=== PATIENT | male | born 1975 | race Caucasian/White ===

== ENCOUNTER 2018-04-28 03:45 | Emergency (ER) | payer OTHER ==
[~2018-04-28] VITALS: Ht 182.9 cm; Wt 95.3 kg
[2018-04-28 03:51] VITALS: BP 137/106
--- NOTE | 2018-04-28 03:53 | NUR ---
TO ED 05 VIA WHEELCHAIR
--- NOTE | 2018-04-28 03:55 | NUR ---
PATIENT PRESENTS TO ED WITH RIGHT ANKLE PAIN AND SWELLING. PT STATES HE ROLLED HIS ANKLE ONE WEEK AGO BUT IT DID NOT HURT UNTIL THIS MORNING. DENIES N/V/D; SKIN IS PINK/WARM/DRY; AAOX4 WITH EVEN AND STEADY GAIT; LUNGS CLEAR BL; HR EVEN AND REGULAR; PT DENIES ANY FEVER, CP, SOB, OR COUGH AT THIS TIME; PATIENT STATES PAIN OF 5/10 AT THIS TIME; VSS; PATIENT POSITIONED FOR COMFORT; HOB ELEVATED; BEDRAILS UP X2; BED DOWN. ER MD MADE AWARE OF PT STATUS.
--- NOTE | 2018-04-28 03:58 | NUR ---
Dr. Butler evaluating patient at bedside.
--- NOTE | 2018-04-28 04:04 | NUR ---
X-Ray at bedside.
[2018-04-28] MEDS ORDERED: KETOROLAC 60 MG/2 ML VIAL IM ONE (04:05)
--- NOTE | 2018-04-28 04:15 | NUR ---
AYO WRAPPED PT'S RIGHT FOOT/ANKLE.
[2018-04-28 04:22] VITALS: BP 135/98
== END 2018-04-28 04:22 | disposition home or self-care (01) ==
LOC: MED 03:45
DX: S93.401A Sprain of unspecified ligament of right ankle, initial encounter (principal); F17.200 Nicotine dependence, unspecified, uncomplicated; Z88.5 Allergy status to narcotic agent; Z98.890 Other specified postprocedural states; X58.XXXA Exposure to other specified factors, initial encounter; Y93.89 Activity, other specified; Y92.89 Other specified places as the place of occurrence of the external cause; Y99.8 Other external cause status
CPT/HCPCS: 73610; 96372; 99283; J1885; Q0092

== ENCOUNTER 2018-05-07 01:35 | Emergency (ER) | payer OTHER ==
[~2018-05-07] VITALS: Ht 182.9 cm; Wt 95.3 kg
[2018-05-07 01:40] VITALS: BP 172/120
--- NOTE | 2018-05-07 01:45 | NUR ---
PT TAKEN TO BED 9
--- NOTE | 2018-05-07 01:52 | NUR ---
Dr. Manriquez evaluating patient at bedside.
[2018-05-07] MEDS ORDERED: KETOROLAC 60 MG/2 ML VIAL IM ONE (01:55)
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
--- NOTE | 2018-05-07 02:04 | NUR ---
Kellie hutson in [facility] - 05/07/18 at 0311 by ISELA PT TAKEN TO CT
--- NOTE | 2018-05-07 02:04 | NUR ---
PT TAKEN TO XRAY
[2018-05-07] MEDS ORDERED: fentaNYL 0.05 MG/ML VIAL IM ONE (03:15)
[2018-05-07 03:36] VITALS: BP 149/106
--- NOTE | 2018-05-07 03:36 | NUR ---
Note mariamone in EDM - 05/07/18 at 0406 by [facility] Patient discharged with v/s stable. Written and verbal after care instructions given and explained. Patient alert, oriented and verbalized understanding of instructions. Ambulatory with steady gait. All questions addressed prior to discharge. ID band removed. Patient advised to follow up with PMD. Rx of Narcan and [place] given. Patient educated on indication of medication including possible reaction and side effects. Opportunity to ask questions provided and answered.
== END 2018-05-07 03:36 | disposition home or self-care (01) ==
LOC: MED 01:35
DX: S22.22XA Fracture of body of sternum, initial encounter for closed fracture (principal); Z88.5 Allergy status to narcotic agent; V89.2XXA Person injured in unspecified motor-vehicle accident, traffic, initial encounter; Y93.89 Activity, other specified; Y92.89 Other specified places as the place of occurrence of the external cause; Y99.8 Other external cause status
CPT/HCPCS: 71120; 96372; 99283; J1885; J3010

== ENCOUNTER 2018-09-05 04:12 | Emergency (ER) | payer OTHER ==
[~2018-09-05] VITALS: Ht 182.9 cm; Wt 94.8 kg
[2018-09-05 04:15] VITALS: BP 150/90
--- NOTE | 2018-09-05 04:15 | NUR ---
43 Y/O MALE PRESENTS TO ED, C/O SHARP ABDOMINAL PAIN RADIATING TO GROIN REGION, 11/18. 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 PT HAS HX OF PASSING 2 KIDNEY STONES 3 YEARS AGO. PT HAS ACTIVE BOWEL SOUNDS, LAST BOWEL MOVEMENT WAS THIS MORNING. ABDOMEN IS FIRM AT PALPATION. NO PAIN URINATING. PT HAS HX OF HTN. PT VSS. DR QUIROZ AWARE. WILL CONTINUE TO MONITOR.
--- NOTE | 2018-09-05 04:15 | NUR ---
TO BED # 09 AMBULATORY
--- NOTE | 2018-09-05 04:29 | NUR ---
PT TAKEN TO RAD
[2018-09-05] MEDS ORDERED: KETOROLAC 30 MG/ML VIAL IVP ONE (04:30)
[2018-09-05] MEDS ORDERED: NACL 0.9% 1,000 ML IV ONE (04:30)
--- NOTE | 2018-09-05 05:15 | NUR ---
PT IS AWAKE, LAYING ON BED. C/O ABDOMINAL PAIN 11/18. DR QUIROZ AWARE. WILL CONTINUE TO MONITOR.
[2018-09-05 05:31] LABS: BASOPHILS # (AUTO) 0.1 K/uL (0.00-0.22); BASOPHILS % (AUTO) 0.9 % (0.0-2.0); EOSINOPHILS # (AUTO) 0.3 K/uL (0-0.4); EOSINOPHILS % (AUTO) 2.7 % (0.0-4.0); HEMATOCRIT 42.6 % (36-52); HEMOGLOBIN 14.1 g/dL (12.0-18.0); LYMPHOCYTES # (AUTO) 1.1 K/uL (2.0-11.5); LYMPHOCYTES % (AUTO) 11.6 % (20.5-51.1); MEAN CORPUSCULAR HEMOGLOBIN 28 pg (27-31); MEAN CORPUSCULAR HGB CONC 33 g/dL (33-37); MONOCYTES # (AUTO) 1.1 K/uL (0.8-1.0); MONOCYTES % (AUTO) 11.5 % (1.7-9.3); NEUTROPHILS # (AUTO) 6.9 K/uL (1.8-7.7); NEUTROPHILS % (AUTO) 73.3 % (42.2-75.2); PLATELET COUNT (AUTO) 275 K/uL (140-450); RED BLOOD CELL COUNT(AUTO) 5.02 MIL/uL (4.20-6.10); RED CELL DISTRIBUTION WIDTH 14.9 % (11.6-13.7); WHITE BLOOD COUNT (AUTO) 9.4 K/uL (4.8-10.8)
[2018-09-05 05:32] LABS: APPEARANCE,URINE CLEAR (CLEAR); BILIRUBIN,URINE NEGATIVE (NEGATIVE); BLOOD, URINE 3+ (NEGATIVE); COLOR,URINE YELLOW (YELLOW); LEUKOCYTE ESTERASE ,URINE NEGATIVE (NEGATIVE); NITRITE, URINE NEGATIVE (NEGATIVE); PH,URINE 5.5 (5.0-9.0); UGLUCOSE NEGATIVE (NEGATIVE)
[2018-09-05 05:46] LABS: RBC,URINE TOO NUMEROUS TO COUN /HPF (0-5)
[2018-09-05 05:51] LABS: ALBUMIN 3.4 g/dL (3.4-5.0); ANION GAP 12.3 (8-16); CARBON DIOXIDE 28.3 mmol/L (21-32); CREATININE 1.1 mg/dL (0.7-1.3); POTASSIUM 3.6 mmol/L (3.5-5.1); TOTAL BILIRUBIN 0.3 mg/dL (0.0-1.0)
[2018-09-05] MEDS ORDERED: ONDANSETRON 4 MG/2 ML VIAL IVP ONE (06:15)
[2018-09-05] MEDS ORDERED: MORPHINE SULFATE 4 MG/ML SYR IVP ONE (06:15)
--- NOTE | 2018-09-05 06:20 | NUR ---
Dr. Gama examining patient.
[2018-09-05 06:35] VITALS: BP 153/77
--- NOTE | 2018-09-05 06:35 | NUR ---
PT DISCHARGE WITH PAPERWORK. RX NORCO FOR PAIN MANAGEMENT AND FLOMAX TO HELP WITH PASSING OF STONE. EDUCATED PT REGARDING MEDICATIONS AND SIDE EFFECTS. EDUCATED PT REGARDING DISCHARGE DIAGNOSIS. PT VERBALIZED UNDERSTANDING OF TEACHING. PT VSS. TOLD PT TO FOLLOW UP WITH PCP AND WHEN TO RETURN TO ED. ALL QUESTIONS ANSWERED.
== END 2018-09-05 06:35 | disposition home or self-care (01) ==
LOC: MED 04:12
DX: N20.0 Calculus of kidney (principal); F17.200 Nicotine dependence, unspecified, uncomplicated; Z87.442 Personal history of urinary calculi; Z88.5 Allergy status to narcotic agent; Z98.890 Other specified postprocedural states
CPT/HCPCS: 36415; 74176; 80053; 81001; 85025; 87086; 96374; 96375; 99284; J1885; J2270; J2405; J7030

== ENCOUNTER 2020-01-19 22:21 | Emergency (ER) | payer OTHER ==
[~2020-01-19] VITALS: Ht 185.4 cm; Wt 101.2 kg
[2020-01-19 22:35] VITALS: BP 134/80
--- NOTE | 2020-01-19 22:38 | NUR ---
TO LOBBY A/W BED AMBULATORY
--- NOTE | 2020-01-19 23:30 | NUR ---
PATIENT PRESENTS TO ED WITH C/O LACERATION RIGHT 2ND DIGIT. DRAINAGE CONTROLLED . DENIES N/V/D; SKIN IS PINK/WARM/DRY; AAOX4 WITH EVEN AND STEADY GAIT; LUNGS CLEAR BL; HR EVEN AND REGULAR; PT DENIES ANY FEVER, CP, SOB, OR COUGH AT THIS TIME; PATIENT STATES PAIN OF 4/10 AT THIS TIME; VSS; PATIENT POSITIONED FOR COMFORT; HOB ELEVATED; BEDRAILS UP X2; BED DOWN. ER MD MADE AWARE OF PT STATUS.
[2020-01-20] MEDS ORDERED: NEOMYCIN/POLYMYXIN/BACITRACIN 0.9 GM/1 PKT TP ONE (00:10)
--- NOTE | 2020-01-20 00:22 | NUR ---
DERMABOND PLACED ON PTS RIGHT INDEX FINGER. PTS PMSC WNL.
[2020-01-20 00:24] VITALS: BP 134/80
--- NOTE | 2020-01-20 00:24 | NUR ---
Patient discharged with v/s stable. Written and verbal after care instructions given and explained. Patient verbalized understanding. Ambulatory with steady gait. All questions addressed prior to discharge. Advised to follow up with PMD.
== END 2020-01-20 00:24 | disposition home or self-care (01) ==
LOC: MED 22:21
DX: S61.210S Laceration without foreign body of right index finger without damage to nail, sequela (principal); I10 Essential (primary) hypertension; Z88.5 Allergy status to narcotic agent; Z71.6 Tobacco abuse counseling; W26.9XXA Contact with unspecified sharp object(s), initial encounter; Y93.89 Activity, other specified; Y92.89 Other specified places as the place of occurrence of the external cause; Y99.8 Other external cause status
CPT/HCPCS: 12001; 90471; 99283

== ENCOUNTER 2020-08-15 01:30 | Emergency (ER) | payer OTHER ==
[~2020-08-15] VITALS: Ht 182.9 cm; Wt 97.5 kg
[2020-08-15 01:45] VITALS: BP 138/93
[2020-08-15] MEDS ORDERED: cefTRIAXone 1,000 MG in LIDOCAINE MPF 1% 2.1 ML IM ONE (02:10)
[2020-08-15] MEDS ORDERED: KETOROLAC 60 MG/2 ML VIAL IM ONE (02:10)
[2020-08-15 02:22] LABS: BASOPHILS # (AUTO) 0.1 K/uL (0.00-0.22); BASOPHILS % (AUTO) 1.2 % (0.0-2.0); EOSINOPHILS # (AUTO) 0.2 K/uL (0-0.4); EOSINOPHILS % (AUTO) 1.9 % (0.0-4.0); HEMOGLOBIN 13.5 g/dL (12.0-18.0); LYMPHOCYTES # (AUTO) 1.9 K/uL (2.0-11.5); LYMPHOCYTES % (AUTO) 17.8 % (20.5-51.1); MEAN CORPUSCULAR HEMOGLOBIN 29 pg (27-31); MEAN CORPUSCULAR HGB CONC 34 g/dL (33-37); MEAN CORPUSCULAR VOLUME 85.8 fL (80-94); MONOCYTES # (AUTO) 1.1 K/uL (0.8-1.0); MONOCYTES % (AUTO) 9.8 % (1.7-9.3); NEUTROPHILS # (AUTO) 7.5 K/uL (1.8-7.7); NEUTROPHILS % (AUTO) 69.3 % (42.2-75.2); PLATELET COUNT (AUTO) 303 K/uL (140-450); RED BLOOD CELL COUNT(AUTO) 4.66 MIL/uL (4.20-6.10); RED CELL DISTRIBUTION WIDTH 14.8 % (11.6-13.7); WHITE BLOOD COUNT (AUTO) 10.8 K/uL (4.8-10.8)
[2020-08-15] MEDS ORDERED: cefTRIAXone 1,000 MG VIAL ONE (02:23)
[2020-08-15] MEDS ORDERED: LIDOCAINE MPF 1% 5 ML ONE (02:25)
[2020-08-15] MEDS ORDERED: LIDOCAINE 2% 100 MG/5 ML SYR IVP ONE (02:25)
[2020-08-15 02:37] LABS: ALBUMIN 3.5 g/dL (3.4-5.0); CARBON DIOXIDE 29.5 mmol/L (21-32); CREATININE 1.2 mg/dL (0.6-1.3); POTASSIUM 3.5 mmol/L (3.5-5.1); TOTAL BILIRUBIN 0.3 mg/dL (0.0-1.0)
[2020-08-15] MEDS ORDERED: CEPH500C16 PO (04:12)
[2020-08-15] MEDS ORDERED: IBUP-2218 PO (04:12)
[2020-08-15 04:29] VITALS: BP 138/93
== END 2020-08-15 04:28 | disposition home or self-care (01) ==
LOC: MED 01:30
DX: S40.812A Abrasion of left upper arm, initial encounter (principal); V98.8XXA Other specified transport accidents, initial encounter; Y93.89 Activity, other specified; Y92.89 Other specified places as the place of occurrence of the external cause; Y99.8 Other external cause status
CPT/HCPCS: 36415; 73060; 73090; 73120; 80053; 82550; 85025; 96372; 99284; J0696; J1885; J2001

== ENCOUNTER 2021-03-25 12:52 | Emergency (ER) | payer OTHER ==
[~2021-03-25] VITALS: Ht 182.9 cm; Wt 99.8 kg
[~2021-03-25 12:52] MED LIST: CEPH500C16 PO; IBUP-2218 PO
[2021-03-25 13:09] VITALS: BP 154/107
[2021-03-25] MEDS ORDERED: HYDROcodone/APAP 5/325 MG 1 TAB TAB PO ONE (13:40)
--- NOTE | 2021-03-25 14:00 | NUR ---
45/M BIB SELF WITH C/O RIGHT ANKLE PAIN SINCE LAST NIGHT. DENIES ANY RECENT INJURY OR TRAUMA STATES PAIN CAME ON SUDDENLY AND HAS WORSENED SINCE. 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 PATIENT AMBULATORY UPON ARRIVAL, NO OBVIOUS SIGNS OF DEFORMITY NOTED.
[2021-03-25] MEDS ORDERED: ACET-8386 PO (15:05)
[2021-03-25] MEDS ORDERED: CEPH-588 PO (15:19)
== END 2021-03-25 15:30 | disposition home or self-care (01) ==
LOC: MED 12:52
DX: M25.571 Pain in right ankle and joints of right foot (principal); L03.90 Cellulitis, unspecified; I10 Essential (primary) hypertension; Z79.899 Other long term (current) drug therapy; Z98.890 Other specified postprocedural states; Z88.5 Allergy status to narcotic agent
CPT/HCPCS: 73610; 99283